=== PATIENT | female | born 2000 | race Caucasian/White ===

== ENCOUNTER 2018-07-13 15:01 | Emergency (ER) | payer OTHER ==
[~2018-07-13] VITALS: Ht 162.6 cm; Wt 74.8 kg
[2018-07-13 15:19] VITALS: BP 121/78
[2018-07-13] MEDS ORDERED: LIDOCAINE /MPF 1% VIAL 5 ML VIAL ONE (16:08)
== END 2018-07-13 16:26 | disposition home or self-care (01) ==
LOC: ER 15:07
DX: S20.451A Superficial foreign body of right back wall of thorax, initial encounter (principal); T63.441A Toxic effect of venom of bees, accidental (unintentional), initial encounter; Y92.89 Other specified places as the place of occurrence of the external cause; Y93.89 Activity, other specified; Y99.8 Other external cause status
CPT/HCPCS: J3490

== ENCOUNTER 2019-03-19 08:48 | Emergency (ER) | payer OTHER ==
[~2019-03-19] VITALS: Ht 162.6 cm; Wt 68.0 kg
--- NOTE | 2019-03-19 09:01 | NUR ---
patient came in to the ER c/o upper back pain x 1 month. On room air, breathing evenly and unlabored. Connected to the monitor and pulse ox. AMbulatory with steady gait. Will continue to monitor accordingly.
[2019-03-19] MEDS ORDERED: LORAZEPAM INJ 2 MG/ML VIAL ONE (09:15)
[2019-03-19] MEDS ORDERED: LORAZEPAM INJ 2 MG/ML VIAL IM ONE (09:30)
[2019-03-19] MEDS ORDERED: KETOROLAC TROMETHAMINE INJ 60 MG/2 ML VIAL IM ONE (09:30)
[2019-03-19 11:27] VITALS: BP 128/71
--- NOTE | 2019-03-19 11:28 | NUR ---
Patient discharged to home in stable condition. Written and verbal after care instructions given. Patient verbalizes understanding of instruction.
== END 2019-03-19 11:28 | disposition home or self-care (01) ==
LOC: ER 08:48
DX: M54.6 Pain in thoracic spine (principal)
CPT/HCPCS: 72050; 72074; 84703; 96372; 99284; J2060

== ENCOUNTER 2019-07-05 12:20 | Emergency (ER) | payer OTHER ==
[~2019-07-05] VITALS: Ht 162.6 cm; Wt 70.3 kg
[2019-07-05 12:42] VITALS: BP 113/72
== END 2019-07-05 14:48 | disposition home or self-care (01) ==
LOC: ER 12:20
DX: B07.0 Plantar wart (principal)

== ENCOUNTER 2021-12-16 08:36 | Emergency (ER) | payer OTHER ==
[~2021-12-16] VITALS: Ht 162.6 cm; Wt 63.5 kg
--- NOTE | 2021-12-16 08:43 | NUR ---
BIBS C/O BURNING PAIN WHILE URINATING X2 HOURS.
--- NOTE | 2021-12-16 08:46 | NUR ---
URINE COLLECTED AND SENT
[2021-12-16 09:03] LABS: BILIRUBIN,URINE NEGATIVE (NEGATIVE); COLOR,URINE DARK YELLOW (YELLOW); LEUKOCYTE ESTERASE ,URINE TRACE (NEGATIVE); NITRITE, URINE NEGATIVE (NEGATIVE); PROTEIN,URINE 100 mg/dl (NEGATIVE); UGLUCOSE NEGATIVE (NEGATIVE); UROBILINOGEN,URINE 0.2 EU/dL (0.2)
[2021-12-16 09:09] LABS: BACTERIA,URINE None seen /HPF (None Seen); RBC,URINE 21-50 /HPF (0-2); SQUAMOUS EPITHELIAL CELL,UR Rare /HPF (None Seen); WBC,URINE 0-2 /HPF (0-3)
[2021-12-16] MEDS ORDERED: PHEN-894 PO (09:53)
[2021-12-16] MEDS ORDERED: NITR100C6 PO (09:53)
[2021-12-16 09:57] VITALS: BP 132/80
--- NOTE | 2021-12-16 09:57 | NUR ---
Patient discharged to home in stable condition. Written and verbal after care instructions given. Patient verbalizes understanding of instruction.
== END 2021-12-16 09:58 | disposition home or self-care (01) ==
LOC: ER 08:47
DX: N39.0 Urinary tract infection, site not specified (principal); R30.0 Dysuria; R35.0 Frequency of micturition; Z79.899 Other long term (current) drug therapy
CPT/HCPCS: 81001; 84703-TC

== ENCOUNTER 2025-01-01 18:09 | Emergency (ER) | payer OTHER ==
[~2025-01-01] VITALS: Ht 162.6 cm; Wt 70.3 kg
[~2025-01-01 18:09] MED LIST: NITR100C6 PO; PHEN-894 PO
[2025-01-01 18:21] VITALS: TEMP 97.7
[2025-01-01] MEDS ORDERED: IBUPROFEN 600 MG TABLET ONE (18:53)
[2025-01-01] MEDS ORDERED: SUMA100T PO (18:53)
[2025-01-01] MEDS ORDERED: SUMATRIPTAN SUCCINATE 6 MG/0.5 ML VIAL SQ ONE (18:53)
[2025-01-01] MEDS ORDERED: ACETAMINOPHEN ES 500 MG TABLET ONE (18:53)
[2025-01-01] MEDS: IBUPROFEN 600 MG TABLET PO ONE (19:00)
[2025-01-01] MEDS: SUMATRIPTAN SUCCINATE 6 MG/0.5 ML VIAL SQ ONE (19:00)
[2025-01-01] MEDS: ACETAMINOPHEN ES 500 MG TABLET PO ONE (19:00)
[2025-01-01 20:15] VITALS: BP 115/75; O2SAT 97
== END 2025-01-01 19:29 | disposition home or self-care (01) ==
LOC: ER 18:17
DX: R51.9 Headache, unspecified (principal); Z79.899 Other long term (current) drug therapy
CPT/HCPCS: 99283; 96372; J3030